=== PATIENT | female | born 1995 | race Two or more races ===

== ENCOUNTER 2019-11-02 17:53 | Emergency (ER) | payer MEDICAID ==
[~2019-11-02] VITALS: Ht 162.6 cm; Wt 65.8 kg
[2019-11-02 18:00] VITALS: BP 136/98
[2019-11-02] MEDS ORDERED: methylPREDNISolone SS 125 MG/2 ML VIAL IVP ONE (18:05)
[2019-11-02] MEDS ORDERED: MAG SULF 2000 MG/WATER PREMIX 50 ML IV ONE (18:05)
[2019-11-02] MEDS ORDERED: NACL 0.9% 1,000 ML IV ONE (18:05)
[2019-11-02] MEDS ORDERED: ALBUTEROL SULFATE/IPRATROPIU 3 ML SOL IH ONE ×2 (18:05→19:30)
[2019-11-02] MEDS ORDERED: FAMOTIDINE 20 MG/2 ML VIAL IVP ONE (18:10)
--- NOTE | 2019-11-02 18:22 | NUR ---
RT AT BEDSIDE
--- NOTE | 2019-11-02 18:32 | NUR ---
23 YO FEMALE CO ASTHMA FLARE UP. PT HAS HISTORY OF ASTHMA AND INTUBATIONS. RT WAS CALLED AND BREATHING TX STARTED. PT IS SITTING STRAIGHT UP IN BED AND SEEMS TO BE BREATHING BETTER AFTER THE BREATHING TX. PMH- ASTHMA MED- ALBUTEROL
--- NOTE | 2019-11-02 19:15 | NUR ---
ASSUMED PATIENT CARE. PATIENT RESTING IN BED QUIETLY. NO DISTRESS NOTED. RR 17; SPO2 98% ON RA. WILL CONTINUE TO MONITOR.
[2019-11-02 19:31] VITALS: BP 136/98
--- NOTE | 2019-11-02 19:57 | NUR ---
Respiratory Therapist at bedside for respiratory intervention.
--- NOTE | 2019-11-02 20:42 | NUR ---
Patient discharged with v/s stable. Written and verbal after care instructions given and explained. Patient alert, oriented and verbalized understanding of instructions. Ambulatory with steady gait. All questions addressed prior to discharge. ID band removed. Patient advised to follow up with PMD. Rx of PREDNISONE AND DUONEB given. Patient educated on indication of medication including possible reaction and side effects. Opportunity to ask questions provided and answered.
== END 2019-11-02 20:42 | disposition home or self-care (01) ==
LOC: MED 17:53
DX: J45.901 Unspecified asthma with (acute) exacerbation (principal); Z88.6 Allergy status to analgesic agent
CPT/HCPCS: 94640; 96365; 96366; 96375; 99284; J2930; J3475; J3490; J7030